=== PATIENT | female | born 1980 | race African-American/Black ===

== ENCOUNTER → 2019-05-06 | Outpatient (REF) | payer OTHER ==
[~2019-05-06] MED LIST: AMBI10TA PO; CYCL5TAB5 PO; DOCU10CA PO; FERR325T3 PO; IBUP80TA PO; LEVO25TA5 PO; PERCOCET PO; PRE-TAB3 PO; PROM-190 PO; TYLE167L PO; XANA0.5T PO
[2019-05-09 14:09] LABS: HPV HYBRID CAPTURE II Negative (Negative)
== END ==
LOC: M LAB REF 17:38
PROVIDERS: ATTEND Physician Assistant
DX: Z01.419 Encounter for gynecological examination (general) (routine) without abnormal findings (principal)

== ENCOUNTER → 2019-09-23 | Outpatient (REF) | payer OTHER ==
[2019-09-23 18:31] LABS: ALT/SGPT 32 U/L (12-78); BILIRUBIN,TOTAL 0.2 MG/DL (0.2-1.0); BLOOD UREA NITROGEN 9 MG/DL (7-18); CALCIUM LEVEL 9.8 MG/DL (8.5-10.1); CARBON DIOXIDE LEVEL 27 MEQ/L (21-32); CHLORIDE LEVEL 106 MEQ/L (98-107); CREATININE FOR GFR 0.83 MG/DL (0.55-1.30); GLOMERULAR FILTRATION RATE > 60.0 (>60); GLUCOSE, FASTING 87 MG/DL (70-100); LIPASE 100 U/L (73-393); POTASSIUM SERUM 4.1 MEQ/L (3.5-5.1); SODIUM LEVEL 139 MEQ/L (136-145); TOTAL PROTEIN 8.3 GM/DL (6.4-8.2)
[2019-09-25 14:07] LABS: H PYLORI SERUM QUANT IgG ABY 0.43 (0.00-0.79)
== END ==
LOC: M LABDRAW1 16:58
PROVIDERS: ATTEND Physician Assistant
DX: R19.7 Diarrhea, unspecified (principal)

== ENCOUNTER → 2019-09-23 | Outpatient (REF) | payer OTHER ==
[2019-09-23 18:29] LABS: HEMOGLOBIN 13.9 g/dl (12.0-15.5); MEAN CORPUSCULAR HEMOGLOBIN 33.4 pg (27.0-33.0); MEAN CORPUSCULAR HGB CONC 33.9 g/dl (32.0-36.5); MEAN CORPUSCULAR VOLUME 98.6 fl (80.0-96.0); PLATELET COUNT, AUTOMATED 347 10^3/uL (150-450); RED BLOOD COUNT 4.16 10^6/uL (4.00-5.40)
[2019-09-23 18:52] LABS: FREE T3 2.4 PG/ML (2.2-4.0); FREE T4 0.88 NG/DL (0.76-1.46); THYROID STIMULATING HORMONE 1.31 uIU/ML (0.358-3.740)
[2019-09-23 18:53] LABS: TOTAL 25(OH) VITAMIN D 22.4 NG/ML (30.0-100.0)
[2019-09-23 18:54] LABS: FOLLICLE STIMULATING HORMONE 7.3 mIU/mL; LUTEINIZING HORMONE 5.7 mIU/mL; PROGESTERONE 0.21 NG/ML
[2019-09-23 18:59] LABS: HEMOGLOBIN A1c 5.2 %
== END ==
LOC: M LAB REF 17:00
PROVIDERS: ATTEND Nurse Practitioner Pediatrics
DX: F41.1 Generalized anxiety disorder (principal); F17.200 Nicotine dependence, unspecified, uncomplicated; F52.9 Unspecified sexual dysfunction not due to a substance or known physiological condition; F33.1 Major depressive disorder, recurrent, moderate; D52.9 Folate deficiency anemia, unspecified; M79.7 Fibromyalgia; K59.1 Functional diarrhea; N94.6 Dysmenorrhea, unspecified

== ENCOUNTER → 2019-11-05 | Outpatient (REF) | payer OTHER ==
[2019-11-07 00:07] LABS: ANTI TETANUS ANTIBODY 1.65 IU/mL (<0.10); DIPTHERIA ANTIBODY TITER 0.53 IU/mL (<0.10)
== END ==
LOC: M LABDRAW1 09:21
PROVIDERS: ATTEND Nurse Practitioner Pediatrics
DX: Z01.84 Encounter for antibody response examination (principal)

== ENCOUNTER → 2019-11-05 | Outpatient (REF) | payer OTHER ==
[2019-11-05 13:00] LABS: RUBELLA IgG QUALITATIVE IMMUNE (IMMUNE)
[2019-11-06 14:10] LABS: HERPES ZOSTER, VARICELLA IgG 963 index (Immune >165); HERPES ZOSTER, VARICELLA IgM <0.91 index (0.00-0.90); MUMPS VIRUS IgG ANTIBODY 77.5 AU/mL (Immune >10.9); RUBEOLA IgG ANTIBODY 41.4 AU/mL (Immune >16.4)
== END ==
LOC: M LABDRAW1 09:16
PROVIDERS: ATTEND Physician Assistant
DX: Z01.84 Encounter for antibody response examination (principal)

== ENCOUNTER → 2022-02-13 | Outpatient (CLI) | payer OTHER | LOC: M PLAIMG 15:28 | PROVIDERS: ATTEND Nurse Practitioner Family | DX: R07.89 Other chest pain (principal) ==